=== PATIENT | female | born 1995 ===

== ENCOUNTER 2016-05-21 18:19 | Emergency (ER) | payer OTHER ==
[2016-05-21] MEDS ORDERED: SODIUM CHLORIDE 0.9% 1000 ML SOL IV SCH (18:30)
[2016-05-21 18:39] LABS: BASOPHILS % (AUTO) 1 % (0-3); EOSINOPHILS % (AUTO) 1 % (0-9); HEMATOCRIT 41 % (35-47); MEAN CORPUSCULAR HGB CONC 34.4 gm/dl (32.0-36.0); MEAN CORPUSCULAR VOLUME 90 fL (81-99); NEUTROPHILS % (AUTO) 58.9 % (37-80)
[2016-05-21 18:48] LABS: CALCIUM 8.6 mg/dl (8.5-10.1); POTASSIUM 3.8 mMol/L (3.5-5.1)
[2016-05-21 20:07] LABS: AMPHETAMINES NEGATIVE (NEGATIVE); METHADONE NEGATIVE (NEGATIVE); OPIATES(OP13) NEGATIVE (NEGATIVE); OXYCODONE(OXY) NEGATIVE (NEGATIVE); PROPOXYPHENE(PPX) NEGATIVE (NEGATIVE); TRICYCLIC ANTIDEPRESSANTS NEGATIVE (NEGATIVE)
[2016-05-21] MEDS ORDERED: BACITRACIN 500 U/GM OIN TOP ONE ×2 (20:31→20:33)
[2016-05-21 21:00] VITALS: BP 132/80; PULSE 98; RESP 16; TEMP 98; O2SAT 99
== END 2016-05-21 20:45 | disposition home or self-care (01) | DRG 563 ==
LOC: ED 18:19
DX: S42.402A Unspecified fracture of lower end of left humerus, initial encounter for closed fracture (principal); S09.90XA Unspecified injury of head, initial encounter; V48.5XXA Car driver injured in noncollision transport accident in traffic accident, initial encounter; R40.2412 Glasgow coma scale score 13-15, at arrival to emergency department; F10.10 Alcohol abuse, uncomplicated; Y90.6 Blood alcohol level of 120-199 mg/100 ml
CPT/HCPCS: 36415; 70450; 72125; 73060; 73090; 73130; 80048; 80305; 80307; 84703; 85025; 85610; 85730; 96365; 99284; 99285; G0390; A6402

== ENCOUNTER 2017-09-21 06:34 | Observation (INO) | payer OTHER ==
[2017-09-21 07:48] VITALS: RESP 20; TEMP 98
[2017-09-21 08:20] LABS: ALBUMIN 2.7 gm/dl (3.4-5.0); BILIRUBIN,TOTAL 0.1 mg/dl (0.2-1.0); CALCIUM 8.7 mg/dl (8.5-10.1); CARBON DIOXIDE 22.1 mEq/L (21-32); CREATININE 0.64 mg/dl (0.60-1.00); POTASSIUM 3.7 mMol/L (3.5-5.1); TOTAL PROTEIN 6.6 gm/dl (6.4-8.2)
[2017-09-21 09:03] LABS: APPEARANCE,URINE Clear; BILIRUBIN,URINE NEGATIVE (NEGATIVE); COLOR,URINE Yellow; GLUCOSE, URINE (UA) NEGATIVE (NEGATIVE); KETONES,URINE NEGATIVE (NEGATIVE); LEUKOCYTE ESTERASE ,URINE NEGATIVE (NEGATIVE); NITRATE,URINE NEGATIVE (NEGATIVE); OCCULT BLOOD,URINE TRACE LYSED (NEG-TRACE); PH,URINE 6.5; UROBILINOGEN,URINE 0.2 (0.2-1.0 EU)
[2017-09-21] MEDS ORDERED: ACETAMINOPHEN 500 MG 500 MG TAB PO ONE (09:04)
[2017-09-21 09:13] LABS: BACTERIA NEGATIVE (< 1+); CRYSTALS NEGATIVE (0-3 AVE/HPF); RBC,URINE NEG (0-3AV/HPF); WBC,URINE 0-1 (0-5AV/HPF)
[2017-09-21] MEDS ORDERED: SODIUM CHLORIDE 0.9% FLUSH 10 ML SOL IV PRN (09:25)
[2017-09-21] MEDS ORDERED: SODIUM CHLORIDE 0.9% 1000ML 1,000 ML IV ONE (09:25)
[2017-09-21] MEDS ORDERED: ACETAMINOPHEN 500 MG 500 MG TAB ONE (09:27)
[2017-09-21 09:33] VITALS: O2SAT 100
[2017-09-21 09:47] LABS: BASOPHILS % (AUTO) 0 % (0-3); EOSINOPHILS % (AUTO) 2 % (0-9); HEMATOCRIT 35 % (35-47); HEMOGLOBIN 11.7 gm/dl (12.0-15.5); MEAN CORPUSCULAR HEMOGLOBIN 30.8 pg (27.0-32.0); MEAN CORPUSCULAR HGB CONC 33.4 gm/dl (32.0-36.0); MEAN CORPUSCULAR VOLUME 92 fL (81-99); MONOCYTES % (AUTO) 6.8 % (0-12); NEUTROPHILS % (AUTO) 74.3 % (37-80)
[2017-09-21 12:33] VITALS: BP 136/90; PULSE 69
== END 2017-09-21 12:20 | disposition home or self-care (01) ==
LOC: ED 06:34 → OB 07:20
PROVIDERS: ADMIT Family Medicine; ATTEND Family Medicine
DX: O47.1 False labor at or after 37 completed weeks of gestation (principal); Z3A.37 37 weeks gestation of pregnancy
CPT/HCPCS: 36415; 59025; 80053; 81001; 85025; 99219; 99283

== ENCOUNTER 2017-10-07 17:51 | Inpatient (IN) | payer OTHER ==
[2017-10-07 19:47] LABS: BASOPHILS % (AUTO) 0 % (0-3); EOSINOPHILS % (AUTO) 1 % (0-9); HEMATOCRIT 35 % (35-47); HEMOGLOBIN 11.7 gm/dl (12.0-15.5); LYMPHOCYTES % (AUTO) 19.95 % (10-50); MEAN CORPUSCULAR HEMOGLOBIN 29.9 pg (27.0-32.0); MEAN CORPUSCULAR HGB CONC 33.1 gm/dl (32.0-36.0); MEAN CORPUSCULAR VOLUME 90 fL (81-99); MONOCYTES % (AUTO) 6.2 % (0-12); NEUTROPHILS % (AUTO) 72.5 % (37-80)
[2017-10-07] MEDS ORDERED: FENTANYL 100MCG/2ML SOL IV PRN (20:15)
[2017-10-07] MEDS ORDERED: MEPIVACAINE HCL 1% MPF 30 ML/VIAL SOL INFIL PRN (20:15)
[2017-10-07] MEDS ORDERED: CARBOPROST 250 MCG/ML SOL IM PRN (20:15)
[2017-10-07] MEDS ORDERED: METHYLERGONOVINE MALEATE 0.2 MG/ML SOL IM PRN (20:15)
[2017-10-07] MEDS ORDERED: OXYTOCIN 10000 MU/ML SOL IM PRN (20:15)
[2017-10-07] MEDS ORDERED: LACTATED RINGERS 1,000 ML IV PRN (20:15)
[2017-10-07] MEDS: SODIUM CHLORIDE 0.9% FLUSH 10 ML SOL IV SCH (20:45)
[2017-10-07] MEDS ORDERED: TERBUTALINE SULFATE 1 MG/ML SOL SC PRN (22:38)
[2017-10-07] MEDS ORDERED: OXYTOCIN 10000 MU/ML 20,000 MU in LACTATED RINGERS 1,000 ML IV SCH (22:45)
[2017-10-07] MEDS ORDERED: LACTATED RINGERS 1,000 ML IV SCH (22:45)
[2017-10-07] MEDS ORDERED: OXYTOCIN 10000 MU/ML SOL ONE (22:57)
[2017-10-07] MEDS ORDERED: LACTATED RINGERS 1,000 ML ONE (22:57)
[2017-10-07] MEDS: SODIUM CHLORIDE 0.9% FLUSH 10 ML SOL IV PRN (23:09)
[2017-10-08] MEDS: SODIUM CHLORIDE 0.9% FLUSH 10 ML SOL IV SCH ×3 (05:08→22:44)
[2017-10-08] MEDS ORDERED: NALOXONE HYDROCHLORIDE 0.4 MG/ML SOL IV PRN (08:48)
[2017-10-08] MEDS ORDERED: EPHEDRINE SULFATE 50 MG/ML SOL IV PRN (08:48)
[2017-10-08] MEDS ORDERED: NALBUPHINE HCL 20 MG/ML SOL IV PRN (08:48)
[2017-10-08] MEDS ORDERED: DIPHENHYDRAMINE 50 MG/ML SOL IV PRN (08:48)
[2017-10-08] MEDS ORDERED: FENTANYL 250 MCG/ 5ML SOL ONE (09:06)
[2017-10-08] MEDS ORDERED: ROPIVACAINE HYDROCHLORIDE 5 MG/ML SOL ONE (09:07)
[2017-10-08] MEDS ORDERED: LIDOCAINE HCL 2% MPF 10 ML SOL ONE (09:07)
[2017-10-08] MEDS: LACTATED RINGERS 1,000 ML IV SCH ×4 (09:07→20:58)
[2017-10-08] MEDS ORDERED: CITRIC ACID/SODIUM CITRATE SOL PO ONE (16:10)
[2017-10-08] MEDS ORDERED: CEFAZOLIN SODIUM 1 GM PDS IVP ONE (16:10)
[2017-10-08] MEDS ORDERED: ONDANSETRON HCL 4 MG/2 ML SOL ONE (16:13)
[2017-10-08] MEDS ORDERED: OXYTOCIN 10000 MU/ML SOL ONE (16:13)
[2017-10-08] MEDS ORDERED: CEFAZOLIN SODIUM 1 GM PDS ONE ×2 (16:30→22:34)
[2017-10-08] MEDS ORDERED: LACTATED RINGERS 1,000 ML with OXYTOCIN 10000 MU/ML 20 MU IV ONE (16:47)
[2017-10-08 17:09] LABS: ABO A; ANTIBODY SCREEN Negative; RH TYPE Positive
[2017-10-08] MEDS ORDERED: EPHEDRINE SULFATE 50 MG/ML SOL ONE (17:10)
[2017-10-08] MEDS ORDERED: METOCLOPRAMIDE HYDROCHLORIDE 5 MG/ML SOL ONE (17:10)
[2017-10-08] MEDS ORDERED: BUPIVACAINE/EPI 0.25% 50 ML SOL ONE (17:47)
[2017-10-08] MEDS ORDERED: FLEET ENEMA PR PRN (19:24)
[2017-10-08] MEDS ORDERED: TEMAZEPAM 15MG 15 MG CAP PO PRN (19:24)
[2017-10-08] MEDS ORDERED: BENZOCAINE/MENTHOL 1 SPR TOP PRN (19:24)
[2017-10-08] MEDS ORDERED: DIPHENHYDRAMINE 25 MG CAP PO PRN (19:24)
[2017-10-08] MEDS ORDERED: WITCH HAZEL 1 EA PAD TOP PRN (19:24)
[2017-10-08] MEDS ORDERED: ONDANSETRON HCL 4 MG/2 ML SOL IV PRN (19:24)
[2017-10-08] MEDS ORDERED: BISACODYL 10 MG SUP PR PRN (19:24)
[2017-10-08] MEDS ORDERED: METHYLERGONOVINE MALEATE 0.2 MG TAB PO PRN (19:24)
[2017-10-08] MEDS: KETOROLAC TROMETHAMINE 30 MG/ML SOL IV PRN (19:55)
[2017-10-08] MEDS ORDERED: CEFAZOLIN (PREMIX) 1 GM 1 GM/50 ML SOL IV SCH (22:13)
[2017-10-08] MEDS: DOCUSATE SODIUM 100 MG SGL PO SCH (22:47)
[2017-10-08] MEDS ORDERED: ACETAMINOPHEN 500 MG 500 MG TAB ONE (23:46)
[2017-10-08] MEDS: ACETAMINOPHEN 500 MG 500 MG TAB PO PRN (23:47)
[2017-10-09] MEDS: LACTATED RINGERS 1,000 ML IV SCH ×6 (00:10→18:57)
[2017-10-09] MEDS: KETOROLAC TROMETHAMINE 30 MG/ML SOL IV PRN ×3 (02:00→18:30)
[2017-10-09] MEDS: SODIUM CHLORIDE 0.9% FLUSH 10 ML SOL IV SCH ×3 (04:21→21:30)
[2017-10-09] MEDS ORDERED: ACETAMINOPHEN 500 MG 500 MG TAB ONE ×3 (06:39→19:45)
[2017-10-09] MEDS: ACETAMINOPHEN 500 MG 500 MG TAB PO PRN ×3 (06:44→20:00)
[2017-10-09] MEDS: SODIUM CHLORIDE 0.9% FLUSH 10 ML SOL IV PRN (10:14)
[2017-10-09] MEDS: DOCUSATE SODIUM 100 MG SGL PO SCH ×2 (10:14→21:25)
[2017-10-10] MEDS: IBUPROFEN 600 MG TAB PO PRN ×4 (01:19→21:15)
[2017-10-10] MEDS ORDERED: ACETAMINOPHEN 500 MG 500 MG TAB ONE ×2 (04:09→17:46)
[2017-10-10] MEDS: ACETAMINOPHEN 500 MG 500 MG TAB PO PRN ×3 (04:19→17:49)
[2017-10-10] MEDS: DOCUSATE SODIUM 100 MG SGL PO SCH ×2 (13:15→21:15)
[2017-10-11 06:23] VITALS: O2SAT 96
[2017-10-11] MEDS: APAP/HYDROCODONE 325/5 TAB PO PRN ×2 (09:23→13:51)
[2017-10-11] MEDS: DOCUSATE SODIUM 100 MG SGL PO SCH (09:23)
[2017-10-11 09:32] VITALS: BP 131/86; PULSE 94; RESP 18; TEMP 98.5
[2017-10-11] MEDS: IBUPROFEN 600 MG TAB PO PRN (12:30)
== END 2017-10-11 14:50 | disposition home or self-care (01) | DRG 540 ==
LOC: OB 17:51 → OBSVTOIN 17:51 → OB 19:10
PROVIDERS: ADMIT Family Medicine; ATTEND Family Medicine
PROC: 10907ZC Drainage of Amniotic Fluid, Therapeutic from Products of Conception, Via Natural or Artificial Opening (ICD-10-PCS; 2017-10-08)
PROC: 10D00Z1 Extraction of Products of Conception, Low, Open Approach (ICD-10-PCS; principal; 2017-10-08 16:50)
DX: O82 Encounter for cesarean delivery without indication (principal); O62.0 Primary inadequate contractions; Z3A.39 39 weeks gestation of pregnancy; Z37.0 Single live birth
CPT/HCPCS: 36415; 59025; 84112; 85018; 85025; 86850; 86900; 86901; 94762; J0670; J0690; J1885; J2405; J2590; J2765; J2795; J3010; A9270-GY; J3490